=== PATIENT | male | born 1955 | race Caucasian/White ===

== ENCOUNTER 2022-01-05 03:35 | Emergency (ER) | payer MEDICARE, SELFPAY ==
[2022-01-05 03:38] VITALS: BP 136/84; PULSE 75; RESP 18; TEMP 35.9; O2SAT 98; BMI 23.3
--- NOTE | 2022-01-05 04:03 | EDS_ITS ---
HPI History of Present Illness Chief Complaint: Dizziness Narrative Narrative: 64-year-old male presenting with vertiginous dizziness. He states he got up to use the restroom and noted he was spinning. He became nauseous and had difficulty walking. He called EMS. On his way to the squad he was able to walk and then vomited. He states he feels a little bit better now. He states he had an episode of this about 40 years ago. He thinks he might have vertigo. He denies any head trauma. No chest pain or shortness of breath. He has been otherwise healthy. He has no significant medical history. PFSH PFS Home Medications meclizine 25 mg tablet 25 mg PO TID PRN dizziness #30 tabs 01/05/22 [Rx Last Taken Unknown] multivitamin 1 tab PO DAILY 01/05/22 [History Last Taken Unknown] Allergy/AdvReac Type Severity Reaction Status Date / Time Iodinated Contrast Media Allergy Nausea/Vom/ Verified 01/05/22 03:38 [contrast dye - iodinated] Diarrhea Surgical History History of cholecystectomy Social History Smoking Status: Former smoker ROS ROS ED Constitutional Constitutional ED: Denies chills, fever(s) or subjective Eyes Eyes: Reports other Details: Vertiginous dizziness ; Denies change in vision or diplopia ENT ENT ED: Denies rhinorrhea or sore throat Cardiovascular Cardiovascular: Denies chest pain or palpitations Respiratory/Chest Respiratory/Chest: Denies cough or dyspnea Gastrointestinal Gastrointestinal: Denies abdominal pain Genitourinary Genitourinary ED: Denies dysuria or hematuria Musculoskeletal Musculoskeletal: Denies arthralgias or back pain Integumentary Denies abscess or Abrasions Neurologic Neurologic: Denies headache(s), paresthesias or weakness Psychiatric Psychiatric: Denies anxiety or depression EXAM Physical Exam Const Vital Signs: 01/05/22 03:38 01/05/22 03:40 Temperature 96.7 F L Temperature Source Temporal Pulse Rate 75 Respiratory Rate 18 Respiratory Effort Normal Respiratory Pattern Normal Blood Pressure 136/84 H Blood Pressure Mean 101 Pulse Ox 98 Oxygen Delivery Method Room Air Positive well nourished General Appearance ED: NAD HEENT Reports moist mucous membranes HEENT Narrative: Positive [place] bilaterally. Nystagmus noted during examination. Eyes PERRL and EOMs intact bilaterally Chest Wall inspection of chest normal Resp normal respiratory effort Cardio regular rate and regular rhythm GI normal to inspection, nondistended, normoactive bowel sounds Neuro oriented x3 and CN's II-XII intact bilaterally Sensorium / Orientation: alert Motor Exam: strength 5/5 throughout Psych mental status grossly normal Skin no rashes or lesions noted and no wounds MDM MDM MDM Narrative Medical decision making narrative: Patient presenting with vertiginous dizziness and nausea/vomiting. This started when he woke up from sleep to go to the restroom. On examination he has positive [place]. He is given meclizine and Phenergan. Patient reevaluated at 5:30 AM. He is doing well. He states dizziness and nausea have resolved. I suspect this is benign positional vertigo. He is given meclizine for home. He is given follow-up outpatient. Impression: 1. Benign positional vertigo 2. Nausea/vomiting Lab Data Attestation: I reviewed the patient's lab results. Discharge Plan Triage Chief Complaint: Dizziness ED Provider: Daryn Mccormack Dx/Rx/DC Orders Instructions: ED BPV Vertigo Prescriptions: New meclizine 25 mg tablet 25 mg PO TID PRN (Reason: dizziness) Qty: 30 0RF No Action multivitamin Tablet 1 tab PO DAILY Primary Care Provider: Care Physician,No Primary Referrals: Nicholas Rhodes DO [Med Staff - [facility]] - 3-5 Days Care Physician,No Primary [Primary Care Provider] - Disposition Disposition: Home, Self Care
[2022-01-05] MEDS: Meclizine HCl 25 MG Tablet PO (04:08)
[2022-01-05] MEDS: proMETHazine 25 MG Tablet PO (04:09)
[2022-01-05 05:27] VITALS: BP 122/75; PULSE 97; RESP 23; TEMP 36.8; O2SAT 98
== END 2022-01-05 05:37 | disposition home or self-care (01) ==
PROVIDERS: Emergency Provider Student in an Organized Health Care Education/Training Program; Visit Provider Student in an Organized Health Care Education/Training Program
DX: R42 Dizziness and giddiness (principal); R11.2 Nausea with vomiting, unspecified; R26.2 Difficulty in walking, not elsewhere classified; Z87.891 Personal history of nicotine dependence
CPT/HCPCS: 99285; A4216